=== PATIENT | female | born 1970 | race Two or more races ===

== ENCOUNTER 2024-08-31 16:14 | Emergency (ER) | payer OTHER ==
[~2024-08-31] VITALS: Ht 157.5 cm; Wt 61.2 kg
[2024-08-31] MEDS ORDERED: KETOROLAC TROMETHAMINE 60 MG VIAL IM ONE (19:15)
== END 2024-08-31 22:22 | disposition home or self-care (01) ==
LOC: ER 16:16
DX: S60.222A Contusion of left hand, initial encounter (principal); W01.0XXA Fall on same level from slipping, tripping and stumbling without subsequent striking against object, initial encounter; Y93.89 Activity, other specified; Y92.89 Other specified places as the place of occurrence of the external cause; J45.909 Unspecified asthma, uncomplicated; M79.7 Fibromyalgia; S62.502A Fracture of unspecified phalanx of left thumb, initial encounter for closed fracture